=== PATIENT | female | born 1955 | race Caucasian/White ===

== ENCOUNTER → 2019-08-22 | Outpatient (CLI) | payer MEDICARE ==
[~2019-08-22] MED LIST: VENL75TA PO; ZOLP-413 PO; [UNRECOGNIZED DRUG - OTHER] PO; [UNRECOGNIZED DRUG - OTHER] PO
[2019-08-22 14:23] LABS: ANION GAP 6 mmol/L (5-15); CHLORIDE 111 mmol/L (98-107); CREATININE 1.01 mg/dL (0.55-1.02)
[2019-08-22 14:25] LABS: INTERNATIONAL NORMALIZED RATIO 0.91 (0.93-1.1); PROTHROMBIN TIME 9.6 Seconds (9.6-11.5)
[2019-08-22 14:36] LABS: BASOPHILS # (AUTO) 0.07 x10^3/uL (0-0.1); BASOPHILS % (AUTO) 1 % (0-1); EOSINOPHILS # (AUTO) 0.19 x10^3/uL (0-0.4); EOSINOPHILS % (AUTO) 3 % (1-7); LYMPHOCYTES # (AUTO) 3.02 x10^3/uL (1-3.4); LYMPHOCYTES % (AUTO) 41 % (22-44); MD NO; MEAN CORPUSCULAR HEMOGLOBIN 27.9 pg (27.0-34.8); MEAN CORPUSCULAR HGB CONC 31.8 g/dL (32.4-35.8); MEAN CORPUSCULAR VOLUME 87.8 fL (80-100); MEAN PLATELET VOLUME 8.7 fL (7.4-10.4); MONOCYTES % (AUTO) 7 % (2-9); NEUTROPHILS # (AUTO) 3.59 x10^3/uL (1.8-6.8); NEUTROPHILS % (AUTO) 49 % (42-75); PLATELET COUNT 343 x10^3/uL (130-400); RED BLOOD COUNT 4.65 x10^6/uL (3.82-5.3); RED CELL DISTRIBUTION WIDTH 15.4 % (9.6-15.2)
== END | disposition home or self-care (01) ==
LOC: STAR 12:59
PROVIDERS: ATTEND Neurological Surgery
DX: G89.4 Chronic pain syndrome (principal)
CPT/HCPCS: 36415; 71046; 80048; 85025; 85610; 85730; 93005

== ENCOUNTER 2020-04-07 07:30 | Day surgery (SDC) | payer MEDICARE ==
[~2020-04-07] VITALS: Ht 154.9 cm; Wt 95.1 kg
[~2020-04-07 07:30] MED LIST changes: +CHOL10003 PO; +ESTR42.58 TP; +NITR100C PO; +OMEG1CAP34 PO; +SMZ-TMP DS PO; +[UNRECOGNIZED DRUG - OTHER] PO
[2020-04-07 07:56] VITALS: BP 134/83
[2020-04-07] MEDS ORDERED: CHLORHEXIDINE 15 ML UDC MM ONE (08:00)
[2020-04-07] MEDS ORDERED: LACTATED RINGERS 1,000 ML IV SCH (08:00)
[2020-04-07] MEDS ORDERED: FENTANYL PF 100 MCG/2ML ONE ×2 (09:00→10:30)
[2020-04-07] MEDS ORDERED: PROPOFOL 10 MG/ML, 20ML ONE (09:02)
[2020-04-07] MEDS ORDERED: MIDAZOLAM 1 MG/ML, 2ML ONE (09:02)
[2020-04-07] MEDS ORDERED: LIDOCAINE-MPF 2% ,5ML ONE (09:03)
[2020-04-07] MEDS ORDERED: KETOROLAC 30 MG/1 ML ONE (09:03)
[2020-04-07] MEDS ORDERED: CEFAZOLIN 1,000 MG ONE ×2 (09:03)
[2020-04-07] MEDS ORDERED: ONDANSETRON 2MG/ML, 2ML ONE ×2 (09:03→10:04)
[2020-04-07] MEDS ORDERED: ONDANSETRON 2MG/ML, 2ML IVPush PRN (10:00)
[2020-04-07] MEDS ORDERED: DIAZEPAM 5 MG/ML, 2ML IVPush PRN (10:00)
[2020-04-07] MEDS ORDERED: ACETAMINOPHEN 325 MG TABLET PO PRN (10:00)
[2020-04-07] MEDS ORDERED: PROMETHAZINE 25 MG/ML, 1ML IVPush PRN (10:00)
[2020-04-07] MEDS ORDERED: MEPERIDINE/PF 25MG/0.5ML IVPush PRN (10:00)
[2020-04-07] MEDS ORDERED: BUPIVACAINE/PF-EPI 0.25% 1:200K INFIL ONE (10:00)
[2020-04-07] MEDS ORDERED: DIPHENHYDRAMINE 50 MG/ML, 1ML IVPush PRN (10:00)
[2020-04-07] MEDS ORDERED: HYDROmorphone 1 MG/ML, 1ML INJ IVPush PRN (10:00)
[2020-04-07] MEDS ORDERED: NEOMY/POLYMYXIN B GU IRR. 1 ML IRRIG ONE (10:01)
[2020-04-07] MEDS ORDERED: DEXAMETHASONE 4 MG/ML, 1ML ONE (10:04)
[2020-04-07] MEDS ORDERED: NEOMY/POLYMYXIN B GU IRR. 1 ML ONE (10:22)
[2020-04-07] MEDS ORDERED: EPINEPHRINE 1 MG/ML, 1ML ONE (10:22)
[2020-04-07] MEDS ORDERED: BUPIVACAINE/PF 0.25% ONE (10:22)
[2020-04-07] MEDS ORDERED: OXYcodone 5 MG/5 ML ORAL.SOL UDC ONE ×2 (10:30→11:58)
[2020-04-07] MEDS ORDERED: ACETAMINOPHEN 650 MG/20.3 ML UDC ONE (10:31)
[2020-04-07] MEDS: FENTANYL PF 100 MCG/2ML IV PRN ×2 (10:33→11:18)
[2020-04-07] MEDS: OXYcodone 5 MG/5 ML ORAL.SOL UDC PO PRN ×2 (10:46→12:01)
[2020-04-07] MEDS ORDERED: ACETAMINOPHEN 325 MG TABLET ONE (11:58)
== END 2020-04-07 13:20 | disposition home or self-care (01) ==
LOC: OUT 07:30
PROVIDERS: ATTEND Obstetrics & Gynecology Female Pelvic Medicine and Reconstructive Surgery
DX: N81.89 Other female genital prolapse (principal); N39.46 Mixed incontinence; N94.10 Unspecified dyspareunia; N81.11 Cystocele, midline; N81.5 Vaginal enterocele; N81.6 Rectocele; F41.1 Generalized anxiety disorder; Z20.822 Contact with and (suspected) exposure to COVID-19; Z79.899 Other long term (current) drug therapy; Z88.5 Allergy status to narcotic agent; Z90.710 Acquired absence of both cervix and uterus; Z90.722 Acquired absence of ovaries, bilateral; Z90.79 Acquired absence of other genital organ(s); Z90.49 Acquired absence of other specified parts of digestive tract; Z98.890 Other specified postprocedural states
CPT/HCPCS: 57265; 57282; 57288; 93005; C1771; J0171; J0690; J2250; J2405; J2704; J3010; J7120; U0003; J1100; J1885